=== PATIENT | female | born 1985 | race African-American/Black ===

== ENCOUNTER 2017-01-12 10:51 | Emergency (ER) | payer OTHER ==
[~2017-01-12] VITALS: Ht 180.3 cm; Wt 103.0 kg
[2017-01-12] MEDS ORDERED: LEVEMIR SUBQ (11:16)
[2017-01-12] MEDS ORDERED: HUMALOG KW200 UNIT/1 (11:17)
[2017-01-12] MEDS ORDERED: MACROBID 100 M100 M2 PO (11:23)
[2017-01-12] MEDS ORDERED: ACETAMINOPHEN-1 EAC1 PO (11:23)
[2017-01-12] MEDS ORDERED: FLAGYL500 MG PO (11:24)
[2017-01-12] MEDS ORDERED: ZOFRAN ODT4 MG DISSOLVE (11:24)
[2017-01-12] MEDS ORDERED: IRON325 PO (11:25)
[2017-01-12] MEDS ORDERED: PRENATAL PLUS1 EAC5 PO (11:26)
[2017-01-12 11:28] LABS: ABSOLUTE NEUTROPHILS 7.2 thou/uL (1.4-8.2); BASOPHILS 0.4 % (0.0-2.0); EOSINOPHILS 0.1 % (0.0-3.0); HEMATOCRIT 35.9 % (37.0-47.0); LYMPHOCYTES 10.2 % (24.0-44.0); MCH 28.7 pg (26.0-34.0); MCHC 33.3 g/dL (28.0-37.0); MCV 86.2 fL (80.0-100.0); MONOCYTES 2.8 % (1.0-8.0); PLATELET COUNT 306 thou/uL (150-400); POLYS 86.5 % (36.0-66.0); RBC 4.16 mil/uL (4.20-5.00); RDW 12.9 % (10.5-14.5); WBC 8.4 thou/uL (4.0-11.0)
[2017-01-12 11:33] LABS: MANUAL DIFF NO
[2017-01-12 11:36] LABS: URINE BILIRUBIN NEGATIVE (Negative); URINE BLOOD 1+ (Negative); URINE COLOR YELLOW; URINE GLUCOSE-RANDOM* TRACE (Negative); URINE KETONES NEGATIVE (Negative); URINE LEUKOCYTES-REFLEX NEGATIVE (Negative); URINE PROTEIN (DIPSTICK) 2+ (Negative); URINE UROBILINOGEN 0.2 E.U./dl (0.2-1.0)
[2017-01-12 11:37] LABS: CALCIUM 9.3 mg/dL (8.5-10.1); CREATININE 0.7 mg/dL (0.6-1.0); POTASSIUM 4.5 mmol/L (3.5-5.1)
[2017-01-12 11:43] LABS: ALBUMIN 3.7 g/dL (3.4-5.0); TOTAL BILIRUBIN 0.4 mg/dL (<0.1-1.0); TOTAL PROTEIN 7.9 g/dL (6.4-8.2)
[2017-01-12 12:01] LABS: CASTS None Seen /LPF (None Seen); SQUAMOUS 0-3 Few /LPF (0-3); URINE RBC 3-10 Few /HPF (0-2); URINE WBC-REFLEX 0-5 Rare /HPF (0-5)
[2017-01-12 12:02] LABS: CRYSTALS None Seen /LPF (None Seen)
[2017-01-12] MEDS ORDERED: NAPROSYN500 MG PO (14:18)
[2017-01-12] MEDS ORDERED: AUGMENTIN 875-1 EACH PO (14:18)
[2017-01-12] MEDS ORDERED: NORCO 5-325 TA1 EACH PO (14:18)
[2017-01-12] MEDS ORDERED: ZOFRAN ODT8 MG PO (14:21)
[2017-01-12 14:48] VITALS: BP 153/85
[2017-01-15 05:43] LABS: CHLAMYDIA TRACHOMATIS-PCR Negative (Negative); NEISSERIA GONORRHEA-PCR Negative (Negative)
== END 2017-01-12 14:50 | disposition home or self-care (01) ==
LOC: ER 10:51
PROVIDERS: Emergency Medicine
DX: O03.9 Complete or unspecified spontaneous abortion without complication (principal); E11.9 Type 2 diabetes mellitus without complications; Z91.040 Latex allergy status

== ENCOUNTER 2021-06-11 06:38 | Emergency (ER) | payer OTHER ==
[~2021-06-11] VITALS: Ht 177.8 cm; Wt 107.0 kg
[~2021-06-11 06:38] MED LIST: ACETAMINOPHEN-1 EAC1 PO; AUGMENTIN 875-1 EACH PO; FLAGYL500 MG PO; HUMALOG KW200 UNIT/1; IRON325 PO; LEVEMIR SUBQ; MACROBID 100 M100 M2 PO; NAPROSYN500 MG PO; NORCO 5-325 TA1 EACH PO; PRENATAL PLUS1 EAC5 PO; ZOFRAN ODT4 MG DISSOLVE; ZOFRAN ODT8 MG PO
[2021-06-11 07:34] LABS: WBC 2.3 thou/uL (4.0-11.0)
[2021-06-11 07:36] LABS: HEMOGLOBIN 12.9 gm/dL (12.0-15.0); MCH 26.9 pg (26.0-34.0); MCHC 32.4 g/dL (28.0-37.0); MCV 83.3 fL (80.0-100.0); PLATELET COUNT 266 thou/uL (150-400); RBC 4.81 mil/uL (4.20-5.00); RDW 13.1 % (10.5-14.5)
[2021-06-11 07:41] LABS: CALCIUM 8.9 mg/dL (8.5-10.1); CREATININE 0.7 mg/dL (0.6-1.0); POTASSIUM 3.7 mmol/L (3.5-5.1)
[2021-06-11 08:02] LABS: ABSOLUTE NEUTROPHILS 0.9 thou/uL (1.4-8.2); ATYPICAL LYMPHS 5 %; PLATELET ESTIMATE NORMAL
[2021-06-11] MEDS ORDERED: HUMALOG100 UNIT/1 SUBQ (08:03)
[2021-06-11] MEDS ORDERED: ONDANSETRON HCL4 M2 PO (08:03)
[2021-06-11 08:47] VITALS: BP 154/88
== END 2021-06-11 08:59 | disposition home or self-care (01) ==
LOC: ER 06:38
PROVIDERS: Emergency Medicine
DX: U07.1 COVID-19 (principal); E11.65 Type 2 diabetes mellitus with hyperglycemia; Z79.4 Long term (current) use of insulin; Z79.899 Other long term (current) drug therapy; Z91.040 Latex allergy status